=== PATIENT | male | born 1970 | race Two or more races ===

== ENCOUNTER → 2025-01-17 | Outpatient (CLI) | payer MEDICAID, SELFPAY ==
--- NOTE | 2025-01-17 14:00 | XR_ITS ---
Examinations: MRA brain without intravenous contrast. 3-D vascular reconstructions Date and time of exam: January 17, 2025 1519 hrs. Indications: Left eye vision loss 2 years right eye vision loss 1 year, right cornea surgery one year ago Technique: MRA brain mages without contrast obtained, including 3-D postprocessing, vascular maximum intensity projection images Findings: Satisfactory filling P2 juxtasellar supraclinoid portions internal carotid arteries M1 segments middle cerebral arteries middle cerebral artery trifurcation vessels basilar artery posterior cerebral branches do fill Ophthalmic artery was are not visualized on this relatively low resolution 3-D reconstruction Deformity of the right optic globe Impression: No large vessel cerebral occlusions or thrombus
--- NOTE | 2025-01-17 14:00 | XR_ITS ---
Examination: MRA brain with intravenous contrast 3-D reconstructions 3-D post processing including vascular maximum vascular intensity projection images Exam date and time: January 17, 2025 at 1318 hrs. Indications: Left eye vision loss 2 years ago right vision loss 1 year ago Findings: Common carotid arteries carotid bifurcations internal carotid arteries intact Mildly dominant left vertebral artery with no critical stenoses Intracranial vertebral arteries basilar artery posterior cerebral artery branches do fill M1 segments middle cerebral arteries middle cerebral artery trifurcation vessels anterior cerebral arteries fill with no large vessel occlusions Resolution of this study does not detail the ophthalmic arteries Impression: No large vessel occlusions or thrombus
--- NOTE | 2025-01-17 14:30 | XR_ITS ---
Examinations: MRI Brain without intravenous contrast. MRI brain with intravenous contrast MRI orbits without intravenous contrast MRI orbits with intravenous contrast Date and time of exam: January 17, 2025 1519 hrs. Indications: Left eye vision loss 2 years ago, right eye vision loss 1 year ago, right eye cranial surgery one year ago Technique: Multiple axial and sagittal images of the brain orbits have been obtained Siemens high-resolution 1.5 Nanci short bore scanner is utilized. Sagittal sections, T1-weighted, TR 500, TE 14 Axial sections proton density and T2-weighted, TR 3,000, TE 34, TR 3,000, TE 91 Inversion recovery axial images, TR 9,260, TE 111, TI 2,500 Diffusion weighted images, axial sections, TR 4,800, TE 128, B value 1,000 Axial sections, ADC map, TR 4,800, TE 128. Contrast images have been obtained post intravenous 20 cc Gadolinium. T1-weighted axial and coronal images post contrast have been obtained. Findings: Sellaturcica is not enlarged. The optic chiasm and infundibular stalk are not remarkable. Prepontine and interpeduncular cisterns are not enlarged. No localized enlargement of the medulla or yassine. Fourth ventricle and cerebellar tonsils normal in position. Subacute hemorrhage is not seen. Deformity of both optic globes The optic nerves appear intact No retro-orbital mass lesions Enhancement of the deformed atrophic right optic globe No localized enlargement of the ophthalmic musculature No disruption of the optic chiasm No pituitary microadenoma Fourth ventricle is midline. Mass in the cerebellopontine angle region is not evident. 7th and 8th nerve complexes exhibits symmetry. Globes are symmetrical with no retro-orbital mass. Increased white matter signal not seen Diffusion-weighted images demonstrateno focus of restricted diffusion. 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
== END | disposition home or self-care (01) ==
LOC: SMRI 13:38
PROVIDERS: PCP Nurse Practitioner Primary Care; Referring Provider Ophthalmology; Visit Provider Ophthalmology
DX: H44.521 Atrophy of globe, right eye (principal)
CPT/HCPCS: 70543; 70544; 70545; 70546

== ENCOUNTER 2025-11-17 18:25 | Emergency (ER) | payer MEDICAID, SELFPAY ==
[2025-11-17 18:26] VITALS: PULSE 92; RESP 18; O2SAT 99; BMI 28.3
[2025-11-17 18:36] VITALS: BP 181/98; PULSE 92; RESP 18; TEMP 36.4; O2SAT 99
--- NOTE | 2025-11-17 18:40 | EKG_ITS ---
[facility] Test Date: 2025-11-17 Pat Name: CULLEN CAIN Department: Room: - Gender: Male Svp Of Digital: : 1970 Requested By: Viktor Mcelroy Order Number: [id number] Reading MD: Viktor Mcelroy Measurements Intervals Qulin Rate: 88 P: 39 NJ: 140 QRS: 15 QRSD: 74 T: 31 QT: 322 QTc: 391 Interpretive Statements SINUS RHYTHM MINIMAL VOLTAGE CRITERIA FOR LVH, CONSIDER NORMAL VARIANT [MEETS CRITERIA IN ONE OF: R(aVL), S(V1), R(V5), R(V5/V6)+S(V1)] No previous ECG available for comparison /store/S0/[id number]/[id number].pdf
--- NOTE | 2025-11-17 18:40 | PD.EDADULT ---
ED General RME/HPI General Chief complaint: Syncope / Near Syncope Stated complaint: SYNCOPE Time Seen by Provider: 11/17/25 18:39 Arrival date/time: 11/17/25 18:25 CC: Syncope HPI patient presents to the ER via EMS for the patient states he got lightheaded dizzy with a mild headache and then woke up on the floor. No prior history of similar events EMS reports hypertension and the patient admits that he is intermittent with his diabetes and hypertension medication. Currently denies any chest pain shortness of breath or difficulty breathing. Related Data Previous Rx's ?Medication ?Instructions ?Recorded dextromethorphan-guaifenesin 30 1 tab PO BID PRN cough #14 tabs 08/01/21 mg-600 mg tablet extended [id number] hr (Mucinex DM) Allergies Allergy/AdvReac Type Severity Reaction Status Date / Time No Known Allergies Allergy Verified 08/01/21 16:56 Review of Systems Review of Systems Narrative Review of Systems: GEN: No fever, no chills, no weight loss EYES: No discharge, no visual changes, no pain HEENT: No ear pain, no congestion, no sore throat PULM: No shortness of breath, no cough, no congestion CV: No chest pain, no dyspnea on exertion, no palpitations GI: No nausea, no vomiting, no diarrhea, no pain, no constipation : No frequency, no urgency, no dysuria MUSC/SKEL: No joint pain, no back pain SKIN: No rash PSYCH: No hallucinations, no depression HEME/LYMPH: No easy bleeding or bruising tendencies NEURO: No weakness, + headache Past Medical History Past Medical History CARDIAC: Negative Congestive Heart Failure RESPIRATORY: Negative Chronic Obstructive Pulmonary Disease (COPD) GENITOURINARY: Negative Renal Disease ENDOCRINE: Negative Diabetes Mellitus Type 1 or Diabetes Mellitus Type 2 Social History SMOKING STATUS: Never smoker ED Exam Narrative Physical exam: [General: Not in any acute distress Head normocephalic HEENT: Eyes not right eye is open to take. Within acceptable limits Neck is supple nontender Chest equal chest rise nontender to palpation Respiratory: Clear to auscultation no wheezes crackles or rubs CV: Rate rhythm is regular no murmurs rubs or clicks Abdomen is distended secondary to body habitus soft nontender no masses positive bowel sounds all 4 quadrants Back: No CVA tenderness no spinous process tenderness from cervical spine thoracic and lumbar spine Skin: Intact no petechiae rash induration ulceration or crepitus Extremities: Moving all extremity against resistance cap refill less than 2 seconds neurosensory intact Neuro: Awake alert oriented x3 Glascow coma 15 no focal deficits] Course Course Course Narrative: Reassessment of this patient at 2215, the patient is in no deterioration neurologic status status throughout his visit the emergency room no repeat episodes of syncope. Laboratory results are wholly unremarkable there is no identifiable source patient will be discharged home with a diagnosis of syncope. Quality Measures none Orders Category Date Time Status EKG (ED ONLY) *Do not use* NOW Care 11/17/25 18:40 Completed EKG (ED Only) Stat Exams 11/17/25 18:40 Draft B-Type Natriuretic Peptide Stat Lab 11/17/25 20:19 Completed CBC Stat Lab 11/17/25 20:19 Completed Comprehensive Metabolic Panel Stat Lab 11/17/25 20:19 Completed Drug Screen,Urine Stat Lab 11/17/25 21:19 Received LDH (Lactate Dehydrogenase) Stat Lab 11/17/25 20:19 Completed Magnesium Stat Lab 11/17/25 20:19 Completed Partial Thromboplastin Time Stat Lab 11/17/25 20:19 Completed Prothrombin Time with INR Stat Lab 11/17/25 20:19 Completed Troponin I Stat Lab 11/17/25 20:19 Completed Urinalysis, C/S if Indicated Stat Lab 11/17/25 21:19 Completed Insulin Regular Med 11/17/25 21:34 Discontinued 5 unit SC X1 ONE Vital Signs Vital signs: Vital Signs Temperature 97.6 F 11/17/25 18:36 Pulse Rate 92 11/17/25 18:36 Respiratory Rate 18 11/17/25 18:36 Blood Pressure 181/98 H 11/17/25 18:36 Pulse Oximetry (%) 99 11/17/25 18:36 Oxygen Delivery Method Room Air 11/17/25 18:36 Discharge Plan Plan Patient Disposition: HOME (Self Care) Patient condition on transfer: Stable Prescriptions/Referrals Prescriptions/Med Rec: No Action Mucinex DM 30-600 mg tablet extended release 12 hr 1 tab PO BID PRN (Reason: cough) Qty: 14 0RF Referrals: No Primary/Family,Physician [Referring Provider] - In 1 week Imer Munoz MD [Physician, Family Practice] - In 1 week Problem List Clinical Impression: Syncope, Hyperglycemia, Hypertension Patient/Caregiver Discharge Instructions Other Activity Instructions:: Take all your medications as prescribed follow-up with your primary care doctor if there is a repeat of symptoms return to the emergency room for reevaluation. Education Materials: Controlling High Blood Pressure, ED Fainting, Uncertain Cause Print Language: Estonian Stand Alone Forms: Elisa Award Info., Work/School Release, Patient Portal Info Letter PA/SORAIDA Supervising Physician PA/SORAIDA Supervising Physician: Viktor Tobar ENP MDM Clinical Information Provided by: patient and EMS Medical Records reviewed [facility] and EMS Meds/Rx considered, not ordered None Labs/Rad/Tests considered, not ordered None Chronic Illness/Social Conditions Explain: Diabetes hypertension with medication noncompliance EKG Interpretation EKG #1: EKG Interpretation: EKG performed at 1855 shows ventricular rate of 88 WA interval 140 QRS of 74 QTc of 368 this is sinus rhythm. Labs Labs: interpreted by ak Lab(s) Interpretation(s): CBC shows no acute leukocytosis anemia thrombocytopenia Coags show no significant abnormalities. CMP shows no significant electrolyte imbalances other than a glucose of 354. No renal impairment transaminitis or T. bili elevation Troponin is negative BNP is negative Urine is negative Imaging Imaging interpretation: none Medication Administration(s) Medication Administration History Discontinued Medications Insulin Human Regular (Insulin Hum Regular 1 Unit/0.01 Ml (Per Unit)) 5 unit SC X1 ONE Stop: 11/17/25 21:35
[2025-11-17 20:19] VITALS: BP 175/98; PULSE 91; RESP 16; TEMP 36.7; O2SAT 97
[2025-11-17 20:32] LABS: Basophils # (Auto) 0.1 Thou/mm3 (0.0-0.2); Basophils % (Auto) 1 % (0-2.5); Eosinophils # (Auto) 0.4 Thou/mm3 (0.0-0.5); Eosinophils % (Auto) 4 % (0-10); Hematocrit 47.1 % (41.0-53.0); Hemoglobin 15.6 g/dL (13.5-16.0); Immature Granulocytes Auto 0.02 Thou/mm3 (0.00-0.00); Lymphocytes # (Auto) 2.0 Thou/mm3 (1.0-4.8); Lymphocytes % (Auto) 20 % (10-50); Mean Corpuscular HGB Conc 33.1 g/dl (31.0-37.0); Mean Corpuscular Hemoglobin 26.0 pg (25.0-35.0); Mean Corpuscular Volume 79 fL (80-100); Monocytes # (Auto) 0.8 Thou/mm3 (0.0-0.8); Monocytes % (Auto) 8 % (0-12); Neutrophils # (Auto) 6.9 Thou/mm3 (1.8-7.7); Neutrophils % (Auto) 67 % (37-80); Nucleated Red Blood Cell # 0.00 Thou/mm3 (0.00-0.00); Nucleated Red Blood Cell % 0 /100 WBC (0); Platelet Count 279 Thou/mm3 (140-440); RDW Standard Deviation 40.9 fL (35.1-43.9); Red Blood Count 5.99 Miln/mm3 (4.50-5.90); White Blood Count 10.2 Thou/mm3 (3.8-10.6)
[2025-11-17 20:53] LABS: INR 0.9 (0.9-1.3); Partial Thromboplastin Time 26.6 Seconds (22.0-36.0); Prothrombin Time 10.0 Seconds (9.0-12.2)
[2025-11-17 20:54] LABS: B-Type Natriuretic Peptide < 20 pg/mL (0-100)
[2025-11-17 20:56] LABS: Alanine Aminotransferase 14 U/L (10-49); Albumin, Serum 4.1 gm/dL (3.5-5.0); Albumin/Globulin Ratio 1.3 (1.2-2.2); Alkaline Phosphatase 116 U/L (46-116); Anion Gap 9 (7-16); Aspartate Amino Transferase 15 U/L (0-34); BUN/Creatinine Ratio 12 Ratio (12-20); Bilirubin,Total 0.5 mg/dL (0.3-1.2); Blood Urea Nitrogen 13 mg/dL (9-23); Calcium 9.2 mg/dL (8.3-10.6); Calcium (Corrected) 9.2 mg/dL (8.5-10.1); Carbon Dioxide 24.8 mMol/L (20.0-31.0); Chloride 104 mMol/L (98-107); Creatinine (Component) 1.1 mg/dL (0.6-1.3); Estimated Creatinine Clearance 59.7 mL/min (>60); Globulin 3.1 gm/dL (2.3-3.5); Glucose 354 mg/dL (74-106); LDH (Lactate Dehydrogenase) 189 U/L (120-246); Magnesium 1.9 mg/dL (1.6-2.6); Osmolality,Calculated 289 (275-295); Potassium 4.2 mMol/L (3.4-5.1); Sodium 138 mMol/L (136-145); Total Protein 7.2 gm/dL (5.7-8.2); Troponin I < 0.020 ng/mL (0.0-0.045); eGFR > 60 See Note
[2025-11-17 21:44] LABS: Collection Type, Urine Clean Catch; WBC,Urine 0 /hpf (0-5)
[2025-11-17 21:52] LABS: Bilirubin,Urine Negative (Negative); Blood,Urine Negative (Negative); Clarity,Urine Clear (Clear/Hazy); Color,Urine Colorless (Lt Yel-Yel); Culture Indicated,Urine Not Indicated; Glucose, Urine 4+ (Negative); Ketones,Urine Negative (Negative); Leukocyte Esterase,Urine Negative (Negative); Nitrite,Urine Negative (Negative); PH,Urine 6.0 (5.0-7.0); Protein,Urine 2+ (Neg - Trace); RBC,Urine 1 /hpf (0-3); Specific Gravity,Urine 1.037 (1.001-1.035); Squamous Epithelial Cell,Urine < 1 /hpf (0-5); Urobilinogen,Urine Negative mg/dL (0.0-1.0)
[2025-11-17 22:18] VITALS: BP 180/100; PULSE 84; RESP 14; TEMP 37; O2SAT 97
[2025-11-17 22:21] LABS: Amphetamine/Methamp Scrn,U Negative (Negative); Barbiturate Screen,Urine Negative (Negative); Benzodiazepines Screen,Urine Negative (Negative); Benzoylecgonine Screen, Ur Negative (Negative); Fentanyl Screen,Urine Negative (Negative); Opiate Screen,Urine Negative (Negative); THC Screen,Urine Negative (Negative)
[2025-11-17] MEDS: INSULIN HUM REGULAR 1 UNIT/0.01 ML (PER UNIT) 5 UNIT SC (22:34)
== END 2025-11-17 23:14 | disposition home or self-care (01) ==
PROVIDERS: Registered Nurse General Practice; Emergency Provider Emergency Medicine; PCP Nurse Practitioner Primary Care
DX: E11.65 Type 2 diabetes mellitus with hyperglycemia (principal); R55 Syncope and collapse; I10 Essential (primary) hypertension; R94.31 Abnormal electrocardiogram [ECG] [EKG]
CPT/HCPCS: 36415; 80053; 80307; 81001; 83615; 83735; 83880; 84484; 85025; 85610; 85730; 93005; 99283; J1815